=== PATIENT | female | born 1945 | race Caucasian/White ===

== ENCOUNTER 2023-12-21 09:21 | Inpatient (IN) | payer MEDICARE ==
[~2023-12-21] VITALS: Ht 162.6 cm; Wt 56.7 kg
[2023-12-21] VITALS (24 sets, daily range): BP systolic 48–174; BP diastolic 28–120; TEMP 97.8; O2SAT 18
[2023-12-21] MEDS ORDERED: ADENOSINE 6 MG/2 ML VIAL ONE (09:41)
[2023-12-21] MEDS: ADENOSINE 6 MG/2 ML VIAL IVP ONE (09:45)
[2023-12-21] MEDS ORDERED: DILTIAZEM HCL 25 MG IV ONE (09:48)
[2023-12-21] MEDS ORDERED: PROPOFOL 100 ML ONE (09:49)
[2023-12-21] MEDS: DILTIAZEM HCL 50 MG IV IV ONE (09:49)
[2023-12-21] MEDS ORDERED: MECL-159 PO (10:22)
[2023-12-21] MEDS ORDERED: GUAI100S9 PO (10:22)
[2023-12-21] MEDS ORDERED: DOCU100T2 PO (10:22)
[2023-12-21] MEDS ORDERED: NA P133E RC (10:22)
[2023-12-21] MEDS ORDERED: ACET-2605 PO (10:22)
[2023-12-21] MEDS ORDERED: AMIN30LI66 PO (10:22)
[2023-12-21] MEDS ORDERED: ATOR80TA PO (10:22)
[2023-12-21] MEDS ORDERED: BISA10SU11 RC (10:22)
[2023-12-21] MEDS ORDERED: PROP10TA10 PO (10:22)
[2023-12-21] MEDS ORDERED: SPIR50TA PO (10:22)
[2023-12-21] MEDS ORDERED: ACET-868 PO (10:22)
[2023-12-21] MEDS ORDERED: CHOL100043 PO (10:22)
[2023-12-21] MEDS ORDERED: FLUT16SP16 BNOSTRILS (10:22)
[2023-12-21] MEDS ORDERED: OMEP20CA15 PO (10:22)
[2023-12-21] MEDS ORDERED: ASPI-1169 PO (10:22)
[2023-12-21] MEDS ORDERED: MAGN400O6 PO (10:22)
[2023-12-21] MEDS ORDERED: MELA1TAB47 PO (10:22)
[2023-12-21] MEDS ORDERED: SIME80TA15 PO (10:22)
[2023-12-21] MEDS ORDERED: PARO30TA4 PO (10:22)
[2023-12-21] MEDS: IV NS 0.9% 1,000 ML BAG IV ONE (10:38)
[2023-12-21] MEDS: DILTIAZEM HCL IV 125 MG in IV NS 0.9% 100 ML IV PRN ×2 (10:38→18:52)
[2023-12-21] MEDS: CEFEPIME 1 GM in IV D5W 50 ML IV ONE (10:43)
[2023-12-21] MEDS: VANCOMYCIN 1 GM in IV D5W 250 ML IV ONE (10:51)
[2023-12-21 10:58] LABS: BASOPHILS % (AUTO) 0.1 % (0.0-2.0); EOSINOPHILS # (AUTO) 0.6 K/uL (0.0-0.7); EOSINOPHILS % (AUTO) 2.8 % (0.0-6.0); HEMATOCRIT 37 % (33-45); HEMOGLOBIN 11.2 g/dL (11.5-14.8); LYMPHOCYTES # (AUTO) 0.5 K/uL (0.8-4.8); LYMPHOCYTES % (AUTO) 2.2 % (20.0-44.0); MEAN CORPUSCULAR HEMOGLOBIN 29 PG (26.0-33.0); MEAN CORPUSCULAR HGB CONC 31 g/dl (31.0-36.0); MEAN CORPUSCULAR VOLUME 94 fL (82-100); MONOCYTES # (AUTO) 0.2 K/uL (0.1-1.30); MONOCYTES % (AUTO) 0.8 % (2.0-12.0); NEUTROPHILS # (AUTO) 20.5 K/uL (1.8-8.9); NEUTROPHILS % (AUTO) 94.1 % (43.0-81.0); PLATELET COUNT (AUTO) 255 K/uL (150-450); RED BLOOD CELL COUNT(AUTO) 3.89 MIL/uL (4.0-5.2); RED CELL DISTRIBUTION WIDTH 18.4 % (11.5-15.0); WHITE BLOOD COUNT (AUTO) 21.8 K/uL (4.3-11.0)
[2023-12-21 11:16] LABS: CALCIUM, SERUM 7.6 mg/dL (8.5-10.1); CARBON DIOXIDE 13 mmol/L (21-32); CHLORIDE 106 mmol/L (98-107); CREATININE 2.2 mg/dL (0.6-1.3); GLUCOSE 68 mg/dL (74-106); SODIUM SERUM 143 mmol/L (136-145); UREA NITROGEN, BLOOD 57 mg/dL (7-18)
[2023-12-21 11:20] LABS: INR 1.75 (0.91-1.10); PARTIAL THROMBOPLASTIN TIME 49.7 SEC (24.3-34.3); PROTHROMBIN TIME 17.9 SECS (9.2-11.1)
[2023-12-21 11:21] LABS: ABG BASE EXCESS -20.2 mmol/L; ABG OXYGEN SATURATION 98.8 % (92.0-98.5); ABG PH 7.019 (7.350-7.450); ABG PO2 260.5 mmHg (75.0-100.0); ABG TOTAL HEMOGLOBIN 12.2 G/dL (12.0-16.0); COHb 0.3 % (0.5-1.5); MetHb 0.6 % (0.0-1.5); O2Hb 97.9 % (94.0-97.0); PEEP,BG 5 cm H2O; SITE, ABG Left Brachial; VT, ABG 500 mL
[2023-12-21 11:21] LABS: ALKALINE PHOSPHATASE 235 U/L (46-116); BILIRUBIN,DIRECT 0.6 mg/dL (0.0-0.2); BILIRUBIN,TOTAL 0.8 mg/dL (0.2-1.0); TOTAL PROTEIN, SERUM 4.7 g/dL (6.4-8.2)
[2023-12-21 11:22] LABS: ALBUMIN 1.4 g/dL (3.4-5.0)
[2023-12-21 11:27] LABS: LACTIC ACID 13.9 mmol/L (0.4-2.0)
[2023-12-21 11:31] LABS: APPEARANCE,URINE CLEAR (CLEAR); BILIRUBIN,URINE 1+ (NEGATIVE); BLOOD, URINE 2+ Ery/uL (NEGATIVE); COLOR,URINE DARK YELLOW (YELLOW); KETONES,URINE NEGATIVE (NEGATIVE); LEUKOCYTE ESTERASE ,URINE NEGATIVE (NEGATIVE); NITRITE, URINE POSITIVE (NEGATIVE); PROTEIN,URINE TRACE mg/dl (NEGATIVE); UGLUCOSE NEGATIVE (NEGATIVE)
[2023-12-21] MEDS ORDERED: IV NS 0.9% 1,000 ML IV PRN (12:00)
[2023-12-21] MEDS ORDERED: MAGNESIUM HYDROXIDE 30 ML UDC PO PRN (12:00)
[2023-12-21] MEDS ORDERED: MAG HYDROX/AL HYDROX/SIMETH 30 ML UDC PO PRN (12:00)
[2023-12-21] MEDS ORDERED: ONDANSETRON HCL/PF 4 MG/2 ML VIAL IVP PRN (12:00)
[2023-12-21] MEDS ORDERED: ACETAMINOPHEN 325 MG TABLET PO PRN (12:00)
[2023-12-21] MEDS ORDERED: ZOLPIDEM TARTRATE 5 MG TABLET PO PRN (12:00)
[2023-12-21] MEDS ORDERED: Z GUARD REMEDY 4 OZ OINT TP PRN (12:00)
[2023-12-21 12:17] LABS: BAND % (MANUAL) 18 % (0.0-5.0); EOSINOPHILS % (MANUAL) 2 % (0-4); LYMPHOCYTES % (MANUAL) 2 % (16-48); MONOCYTES % (MANUAL) 2 % (0-11.0); NEUTROPHILS % (MANUAL) 76 (42-76); PLATELET ESTIMATE ADEQU
[2023-12-21 12:18] LABS: TOXIC GRANULATION 1+
[2023-12-21 12:49] LABS: ALANINE AMINOTRANSFERASE 47 U/L (12-78); ASPARTATE AMINOTRANSFERASE 431 U/L (15-37)
[2023-12-21] MEDS ORDERED: HEPARIN SODIUM, PORCINE 5000 UNITS/1 ML VIAL ONE (13:46)
[2023-12-21] MEDS: HEPARIN SODIUM, PORCINE 5000 UNITS/1 ML VIAL IV ONE (13:51)
[2023-12-21] MEDS: HEPARIN INFUSION/D5W 500 ML IV PRN (14:07)
[2023-12-21 16:07] LABS: ADD URINE CULTURE YES
[2023-12-21] MEDS: Sodium Bicarbonate 100 MEQ in IV D5 / 0.2% NACL 1,000 ML IV SCH (16:19)
[2023-12-21] MEDS: METRONIDAZOLE 500MG/ NS 100ML 500 MG in PREMIX 1 EA IV SCH (20:47)
[2023-12-21] MEDS: CEFEPIME 2 GM in IV D5W 100 ML IV SCH (20:48)
[2023-12-22] VITALS (29 sets, daily range): BP systolic 38–158; BP diastolic 19–118; TEMP 97.7
[2023-12-22] MEDS ORDERED: NOREPINEPHRINE 8MG/250ML RTU 250 ML IV ONE ×2 (00:46→04:41)
[2023-12-22] MEDS: NOREPINEPHRINE 8 MG in IV D5W 242 ML IV PRN (00:56)
[2023-12-22 04:45] LABS: BASOPHILS % (AUTO) 0.1 % (0.0-2.0); EOSINOPHILS # (AUTO) 0.3 K/uL (0.0-0.7); EOSINOPHILS % (AUTO) 1.7 % (0.0-6.0); HEMATOCRIT 37 % (33-45); HEMOGLOBIN 11.4 g/dL (11.5-14.8); LYMPHOCYTES # (AUTO) 0.5 K/uL (0.8-4.8); LYMPHOCYTES % (AUTO) 2.9 % (20.0-44.0); MEAN CORPUSCULAR HEMOGLOBIN 29 PG (26.0-33.0); MEAN CORPUSCULAR HGB CONC 31 g/dl (31.0-36.0); MEAN CORPUSCULAR VOLUME 94 fL (82-100); MONOCYTES # (AUTO) 0.2 K/uL (0.1-1.30); NEUTROPHILS % (AUTO) 94.3 % (43.0-81.0); PLATELET COUNT (AUTO) 165 K/uL (150-450); RED BLOOD CELL COUNT(AUTO) 3.92 MIL/uL (4.0-5.2); RED CELL DISTRIBUTION WIDTH 19.3 % (11.5-15.0)
[2023-12-22 05:13] LABS: CARBON DIOXIDE 17 mmol/L (21-32); CHLORIDE 103 mmol/L (98-107); CREATININE 3.1 mg/dL (0.6-1.3); GLUCOSE 119 mg/dL (74-106); MAGNESIUM 2.6 mg/dL (1.8-2.4); POTASSIUM 4.7 mmol/L (3.5-5.1); SODIUM SERUM 140 mmol/L (136-145); UREA NITROGEN, BLOOD 60 mg/dL (7-18)
[2023-12-22] MEDS ORDERED: DEXTROSE 50%-WATER 50 ML DISP.SYRIN IV ONE (05:23)
[2023-12-22 05:25] LABS: THYROID STIMULATING HORMONE 2.316 uIU/mL (0.358-3.74)
[2023-12-22 05:38] LABS: BAND % (MANUAL) 20 % (0.0-5.0); LYMPHOCYTES % (MANUAL) 8 % (16-48); METAMYELOCYTES % 2 % (0-0); MONOCYTES % (MANUAL) 5 % (0-11.0); MYELOCYTES % 1 % (0-0); NEUTROPHILS % (MANUAL) 64 (42-76)
[2023-12-22 05:39] LABS: ANISOCYTOSIS 1+; OVALOCYTES 1+; PLATELET ESTIMATE ADEQUATE; TOXIC GRANULATION 1+
[2023-12-22 06:30] LABS: PHOSPHORUS 8.5 mg/dL (2.5-4.9)
[2023-12-22 06:30] LABS: ABG BASE EXCESS -19.5 mmol/L; ABG OXYGEN SATURATION 84.1 % (92.0-98.5); ABG PCO2 37.9 mmHg (35.0-45.0); ABG PH 7.048 (7.350-7.450); ABG PO2 61.7 mmHg (75.0-100.0); ABG TOTAL HEMOGLOBIN 12.4 G/dL (12.0-16.0); AaDO2 252.2 mmHg; COHb 0.5 % (0.5-1.5); MetHb 0.3 % (0.0-1.5); O2Hb 83.4 % (94.0-97.0); SITE, ABG Left Brachial
[2023-12-22] MEDS ORDERED: PANTOPRAZOLE 40 MG VIAL IV SCH (09:00)
[2023-12-22] MEDS ORDERED: ETOMIDATE 2 MG/ML VIAL IV ONE (09:14)
[2023-12-22] MEDS ORDERED: VANCOMYCIN 500 MG in IV D5W 100ml IV SCH (11:00)
== END 2023-12-22 05:24 | DRG 871 ==
LOC: ER 09:28 → ICU 16:12
PROVIDERS: ADMIT Student in an Organized Health Care Education/Training Program; ATTEND Internal Medicine
PROC: 5A1935Z Respiratory Ventilation, Less than 24 Consecutive Hours (ICD-10-PCS; principal; 2023-12-21)
PROC: 0BH17EZ Insertion of Endotracheal Airway into Trachea, Via Natural or Artificial Opening (ICD-10-PCS; 2023-12-21)
PROC: 06HM33Z Insertion of Infusion Device into Right Femoral Vein, Percutaneous Approach (ICD-10-PCS; 2023-12-21)
PROC: B54BZZA Ultrasonography of Right Lower Extremity Veins, Guidance (ICD-10-PCS; 2023-12-21)
DX: A41.9 Sepsis, unspecified organism (principal); E43 Unspecified severe protein-calorie malnutrition; R65.21 Severe sepsis with septic shock; G92.8 Other toxic encephalopathy; I21.4 Non-ST elevation (NSTEMI) myocardial infarction; J18.9 Pneumonia, unspecified organism; J96.01 Acute respiratory failure with hypoxia; J86.9 Pyothorax without fistula; K68.19 Other retroperitoneal abscess; E87.20 Acidosis, unspecified; N17.9 Acute kidney failure, unspecified; I48.92 Unspecified atrial flutter; I47.10 Supraventricular tachycardia, unspecified; J44.0 Chronic obstructive pulmonary disease with (acute) lower respiratory infection; J98.11 Atelectasis; D64.9 Anemia, unspecified; E78.5 Hyperlipidemia, unspecified; I48.91 Unspecified atrial fibrillation; Z66 Do not resuscitate; Z79.82 Long term (current) use of aspirin; Z86.73 Personal history of transient ischemic attack (TIA), and cerebral infarction without residual deficits; Z88.0 Allergy status to penicillin; Z88.2 Allergy status to sulfonamides; J43.9 Emphysema, unspecified; K21.9 Gastro-esophageal reflux disease without esophagitis; K52.9 Noninfective gastroenteritis and colitis, unspecified; I25.10 Atherosclerotic heart disease of native coronary artery without angina pectoris; Z68.21 Body mass index [BMI] 21.0-21.9, adult; I12.9 Hypertensive chronic kidney disease with stage 1 through stage 4 chronic kidney disease, or unspecified chronic kidney disease; N18.9 Chronic kidney disease, unspecified; R74.01 Elevation of levels of liver transaminase levels
CPT/HCPCS: 31720; 36415; 36600; 70450-TC; 71045-TC; 80048-TC; 80076-TC; 81001; 82803-TC; 82962-TC; 83605-TC; 83735-TC; 84100-TC; 84443-TC; 84484-TC; 85025-TC; 85730-TC; 87040-TC; 87086-TC; 93307-TC; 94002-TC; 94003-TC; 94640-TC; 94799-TC; 99082-TC; A4216; A4223; G0378; J0153; J0171; J0692; J1644; J3370; J3490; J7030; J7060; J7120